=== PATIENT | female | born 1990 | race African-American/Black ===

== ENCOUNTER 2023-05-30 09:23 | Emergency (ER) | payer MEDICAID ==
[~2023-05-30] VITALS: Ht 160 cm; Wt 53.6 kg
[2023-05-30 09:22] VITALS: TEMP 98
[2023-05-30 10:24] LABS: APPEARANCE,URINE CLEAR (CLEAR); BILIRUBIN,URINE NEGATIVE (NEGATIVE); COLOR,URINE DARK YELLOW (YELLOW); GLUCOSE, URINE (UA) NEGATIVE (NEGATIVE); KETONES,URINE NEGATIVE (NEGATIVE); LEUKOCYTE ESTERASE ,URINE MODERATE (NEGATIVE); NITRATE,URINE NEGATIVE (NEGATIVE); OCCULT BLOOD,URINE TRACE (NEGATIVE); PROTEIN,URINE TRACE mg/dL (NEGATIVE); SPECIFIC GRAVITIY, URINE 1.007 (1.003-1.030); UROBILINOGEN,URINE <=1.0 mg/dL (<=1.0)
[2023-05-30] MEDS: POVIDONE-IODINE 10% 15 ML SOLUTION UD TP ONE (10:29)
[2023-05-30] MEDS: LIDOCAINE 1% 10 ML VIAL SQ ONE (10:29)
[2023-05-30 10:45] VITALS: BP 125/78; PULSE 75; RESP 16
[2023-05-30 10:46] LABS: BACTERIA,URINE Moderate /HPF (None Seen); RBC,URINE 0-2 /HPF (0-2); SQUAMOUS EPITHELIAL CELL,UR Moderate /LPF (None Seen)
[2023-05-30 10:47] LABS: HCG,QUAL URINE NEGATIVE (NEGATIVE)
[2023-05-30] MEDS ORDERED: AMOX500C2 PO (10:57)
== END 2023-05-30 11:07 | disposition home or self-care (01) ==
LOC: EMS 09:23
DX: N75.0 Cyst of Bartholin's gland (principal)
CPT/HCPCS: 99284; 56420; 81001; 84703; 87086; 87186; J3490

== ENCOUNTER 2023-08-27 08:19 | Emergency (ER) | payer MEDICAID ==
[~2023-08-27] VITALS: Ht 160 cm; Wt 47.7 kg
[~2023-08-27 08:19] MED LIST: AMOX500C2 PO; DOXY-354 PO; METR500 PO
[2023-08-27 08:22] VITALS: BP 100/67; PULSE 77; RESP 16; TEMP 98.3
[2023-08-27] MEDS: LIDOCAINE 1% 10 ML VIAL SQ ONE (09:06)
[2023-08-27] MEDS ORDERED: ACET-2080 PO (10:00)
[2023-08-27] MEDS ORDERED: DOXY-354 PO (10:00)
[2023-08-27] MEDS ORDERED: IBUP-1554 PO (10:00)
[2023-08-27] MEDS ORDERED: CEPH-558 PO (10:00)
== END 2023-08-27 10:16 | disposition home or self-care (01) ==
LOC: EMS 08:19
DX: N75.1 Abscess of Bartholin's gland (principal)
CPT/HCPCS: 99283; 10060; J3490

== ENCOUNTER 2023-09-01 08:01 | Emergency (ER) | payer MEDICAID ==
[~2023-09-01] VITALS: Ht 160 cm; Wt 50.0 kg
[~2023-09-01 08:01] MED LIST changes: +ACET-2080 PO; +CEPH-558 PO; +IBUP-1554 PO
[2023-09-01 08:04] VITALS: BP 110/82; PULSE 83; RESP 16; TEMP 98.3
== END 2023-09-01 08:33 | disposition home or self-care (01) ==
LOC: EMS 08:01
DX: N75.1 Abscess of Bartholin's gland (principal)
CPT/HCPCS: 99281; Z7502

== ENCOUNTER 2023-12-05 11:39 | Emergency (ER) | payer MEDICAID ==
[~2023-12-05] VITALS: Ht 160 cm; Wt 53.2 kg
[2023-12-05 11:40] VITALS: BP 105/73; PULSE 75; RESP 18; TEMP 98.6; O2SAT 99
[2023-12-05] MEDS: CARBAMIDE PEROXIDE 6.5% 15 ML OTIC SOLUTION AU ONE (12:21)
[2023-12-05] MEDS ORDERED: IBUP-1492 PO (13:32)
[2023-12-05] MEDS ORDERED: AMOX500C2 PO (13:32)
== END 2023-12-05 13:45 | disposition home or self-care (01) ==
LOC: EMS 11:39
DX: H61.21 Impacted cerumen, right ear (principal); H66.91 Otitis media, unspecified, right ear
CPT/HCPCS: 69209; 99282; Z7502; Z7610